=== PATIENT | male | born 1985 | race Caucasian/White ===

== ENCOUNTER 2021-06-11 20:16 | Emergency (ER) | payer SELFPAY ==
[~2021-06-11] VITALS: Ht 180.3 cm; Wt 72.6 kg
[2021-06-11] MEDS ORDERED: BSS 15 ML IR ONE (20:30)
[2021-06-11] MEDS ORDERED: TETRACAINE 0.5% OPHTH SOLN 4 ML BTL (SINGLE DOSE ONLY) OU ONE (20:30)
[2021-06-11] MEDS ORDERED: FLUORESCEIN (FLUOR-I-STRIPS) 1 MG STRP OU ONE (20:30)
[2021-06-11 20:36] VITALS: BP 129/77
[2021-06-11] MEDS ORDERED: RX-NEO/POLYB/HC OTIC (CORTISPORIN) SUSP 10 ML BTL OT STA (20:53)
--- NOTE | 2021-06-11 20:57 | ED EENT ---
History of Present Illness General Chief Complaint: Eye Problems Stated Complaint: FB IN RIGHT EYE Nursing Triage Note: PT AMBULATE TO ROOM 03 WITH C/O FOREIGN BODY IN RIGHT EYE. PT STATES HE WAS DRIVING AND SOMETHING HIT HIS EYE. (ANDRESSA GONZALEZ) History of Present Illness Date Seen by Provider: Jun 11, 2021 Time Seen by Provider: 20:40 Initial Comments Patient reports approximately 1600 today he was driving down the road with his window open when he felt a foreign body hit his right eye and he had immediate onset of pain. He is unsure of a bug or other foreign body flew into his car. He tried irrigating the eye with water and had no improvement. He has had no previous trauma to his right eye. He sees Dr. CASTREJON for his eye doctor and is due for an appointment. He is supposed to wear glasses. Timing/Duration: abrupt Location: eye (R) Prearrival Treatment: flushing eyes Associated Symptoms: denies symptoms (ANDRESSA GONZALEZ) Allergies and Home Medications Allergies Coded Allergies: No Known Drug Allergies (Unverified , 06/11/21) Patient Home Medication List Home Medication List Reviewed: Yes (ANDRESSA GONZALEZ) Review of Systems Review of Systems Constitutional: no symptoms reported, see HPI Eyes: See HPI; Denies Blurred Vision; Foreign Body Sensation, Inflammation; Denies Vision Changes (ANDRESSA GONZALEZ) All Other Systems Reviewed Negative Unless Noted: Yes (ANDRESSA GONZALEZ) Past Vsjkuyd-Ojufyx-Hxcgph Hx Patient Social History Tobacco Use?: Yes Tobacco type used: Cigarettes Smoking Status: Current Everyday Smoker Substance use?: No Alcohol Use?: Yes (ANDRESSA GONZALEZ) Family Medical History Reviewed Nursing Family Hx (ANDRESSA GONZALEZ) Physical Exam Vital Signs Vital Signs - First Documented 06/11/21 20:36 Temp 36.3 Pulse 86 Resp 16 B/P (MAP) 129/77 (94) O2 Delivery Room Air (SAMIA BENNETT MD) Height, Weight, BMI Height: '" Weight: lbs. oz. kg; 22.00 BMI Method: General Appearance: WD/WN, no apparent distress Eyes: right eye conjunctival inflammation, right eye lid inflammation; bilateral eye normal inspection, bilateral eye PERRL, bilateral eye EOMI Cardiovascular: normal peripheral pulses, regular rate, rhythm Respiratory: chest non-tender, lungs clear, normal breath sounds Neurologic/Psychiatric: no motor/sensory deficits, alert, normal mood/affect, oriented x 3 (ANDRESSA GONZALEZ) Progress/Results/Core Measures Results/Orders My Orders Orders - SAMIA BENNETT MD Tetracaine 0.5% Ophth Estrella Sdv (Tetracai (06/11/21 20:30) Fluorescein Strips (Ftfmp-H-Keifab) (06/11/21 20:30) Balanced Salt Irrigation Soln (Bss Irrig (06/11/21 20:30) (SAMIA BENNETT MD) Medications Given in ED Current Medications Medications Dose Ordered Sig/Lucinda Route Start Time Stop Time Status Last Admin Dose Admin Balanced Salt Solution 15 ml ONCE ONCE IR 06/11/21 20:30 06/11/21 20:31 DC 06/11/21 20:43 15 ML Fluorescein Sodium 1 mg ONCE ONCE OU 06/11/21 20:30 06/11/21 20:31 DC 06/11/21 20:43 1 MG Tetracaine HCl 4 ml ONCE ONCE OU 06/11/21 20:30 06/11/21 20:31 DC 06/11/21 20:43 4 ML (SAMIA BENNETT MD) Vital Signs/I&O 06/11/21 20:36 Temp 36.3 Pulse 86 Resp 16 B/P (MAP) 129/77 (94) O2 Delivery Room Air (SAMIA BENNETT MD) Blood Pressure Mean: 94 Progress Progress Note : Time: 20:40 Progress Note Patient seen and evaluated, 4 drops of tetracaine to the right eye, patient had improvement in his discomfort. Increased fluorescein uptake at approximately 7:00 in the right eye. No other abnormality seen. Patient reports improvement in symptoms after the tetracaine. Discharge instructions and return precautions reviewed with him. (ANDRESSA GONZALEZ) Departure Impression Primary Impression: Corneal abrasion Qualified Codes: S05.01XA - Injury of conjunctiva and corneal abrasion without foreign body, right eye, initial encounter Disposition: HOME, SELF-CARE Condition: Improved Departure-Patient Inst. Decision time for Depature: 20:50 (ANDRESSA GONZALEZ) Referrals: NO,LOCAL PHYSICIAN (PCP/Family) Primary Care Physician Patient Instructions: Corneal Abrasion Add. Discharge Instructions: Use eyedrops to every 4 hours while awake. Follow-up with your eye doctor if symptoms are not improving or worsen. You may alternate between Tylenol 650 mg and ibuprofen 600 mg every 4 hours. Return to the emergency department for new, urgent healthcare problems. All discharge instructions reviewed with patient and/or family. Voiced understanding. ATTENDING PHYSICIAN NOTE: I was physically present as attending physician in the emergency department during the care of this patient, but I was not directly involved in the decision making or delivery of care for this patient. (SAMIA BENNETT MD) LISAANDRESSA Jun 11, 2021 20:57 SAMIA BENNETT MD Jun 12, 2021 07:40
[2021-06-11] MEDS ORDERED: RX-NEO/POLYB/HC OTIC (CORTISPORIN) SUSP 10 ML BTL ONE (20:59)
== END 2021-06-11 21:03 | disposition home or self-care (01) ==
LOC: EDUNIT# 20:16 → ER 20:20
DX: S05.01XA Injury of conjunctiva and corneal abrasion without foreign body, right eye, initial encounter (principal); F17.210 Nicotine dependence, cigarettes, uncomplicated; W45.8XXA Other foreign body or object entering through skin, initial encounter
CPT/HCPCS: 99282